=== PATIENT | female | born 1950 | race Asian ===

== ENCOUNTER 2019-01-03 13:20 | Emergency (ER) | payer BC, MEDICARE, SELFPAY ==
--- NOTE | 2019-01-03 13:30 | EDM.PDOC ---
ED HPI GENERAL MEDICAL PROBLEM - General Chief Complaint: Respiratory Problem Stated Complaint: SOB Time Seen by Provider: 01/03/19 13:29 - History of Present Illness INITIAL COMMENTS - FREE TEXT/NARRATIVE: 68-year-old female presents emergency room with shortness of breath. Patient recently moved here from [place]. She has had a history of a heart attack in the past and she was in the process of getting worked up for what sounds like reactive airway disease however, was not able to follow-up with this. She uses albuterol MDI when necessary and a nebulizer when necessary she has a Combivent inhaler that she does not use unless she absolutely necessary because of cost. The patient woke up around 7:00 this morning and was very short of breath she used her nebulizer with albuterol. This did not seem to help much. - Related Data Allergies Allergy/AdvReac Type Severity Reaction Status Date / Time No Known Allergies Allergy Verified 01/03/19 13:29 Home Meds: Home Meds Albuterol/Ipratropium [DuoNeb 3.0-0.5 MG/3 ML] 3 ml .XX Q6H #60 neb 01/03/19 [Rx ] Fluticasone Propionate [Flovent HFA 110 MCG] 1 puff INH BID #1 puff 01/03/19 [Rx ] predniSONE [Prednisone] 40 mg PO Q24H #10 tablet 01/03/19 [Rx] ED ROS GENERAL - Review of Systems Review Of Systems: See Below Constitutional: Reports: No Symptoms HEENT: Reports: No Symptoms Respiratory: Reports: Shortness of Breath, Wheezing. Denies: Cough, Sputum, Hemoptysis Cardiovascular: Reports: No Symptoms Endocrine: Reports: No Symptoms GI/Abdominal: Reports: No Symptoms : Reports: No Symptoms Musculoskeletal: Reports: No Symptoms Skin: Reports: No Symptoms Neurological: Reports: No Symptoms ED EXAM, GENERAL - Physical Exam Exam: See Below Exam Limited By: Language Barrier (She has a little bit of a language barrier but we are able to work past this) General Appearance: Alert, Mild Distress (Shortness of breath) Eye Exam: Bilateral Eye: Normal Inspection Ears: Normal External Exam, Normal Canal, Hearing Grossly Normal, Normal TMs Nose: Normal Inspection, Normal Mucosa, No Blood Throat/Mouth: Normal Inspection, Normal Lips, Normal Teeth, Normal Gums, Normal Oropharynx, Normal Voice, No Airway Compromise Head: Atraumatic, Normocephalic Neck: Normal Inspection, Supple, Non-Tender, Full Range of Motion. No: Lymphadenopathy (L), Lymphadenopathy (R) Respiratory/Chest: Other (Get O2 saturation however she is not moving much air she is very tight.) Cardiovascular: Regular Rate, Rhythm, No Edema, No Murmur GI/Abdominal: Normal Bowel Sounds, Soft, Non-Tender Extremities: Normal Inspection, Non-Tender, Pedal Edema (Trace edema in the lower extremities above the ankles. Patient states this is normal for her) EKG INTERPRETATION EKG Date: 01/03/19 Rhythm: Other (First-degree AV block) [place]: Normal P-Wave: Present QRS: Other (Low-voltage) ST-T: Other (Nonspecific nondiagnostic changes inferior V5 and V6) QT: Normal Comparison: NA - No Prior EKG EKG Interpretation Comments: Abnormal Course - Vital Signs Last Recorded V/S: Last Vital Signs Temp 37.1 C 01/03/19 13:25 Pulse 87 01/03/19 13:25 Resp 16 01/03/19 13:25 BP 187/107 H 01/03/19 13:25 Pulse Ox 99 01/03/19 17:43 - Orders/Labs/Meds Orders: Active Orders 24 hr Category Date Time Status EKG Documentation Completion [RC] STAT Care 01/03/19 13:46 Active RT Aerosol Therapy [RC] ASDIRECTED Care 01/03/19 13:42 Active RT Aerosol Therapy [RC] ASDIRECTED Care 01/03/19 14:28 Active RT Aerosol Therapy [RC] ASDIRECTED Care 01/03/19 17:34 Active Chest 1V Frontal [CR] Stat Exams 01/03/19 13:47 Taken Labs: Laboratory Tests 01/03/19 01/03/19 Range/Units 14:00 14:00 WBC 7.24 (3.98-10.04) K/mm3 RBC 4.36 (3.98-5.22) M/mm3 Hgb 13.5 (11.2-15.7) gm/dl Hct 39.9 (34.1-44.9) % MCV 91.5 (79.4-94.8) fl MCH 31.0 (25.6-32.2) pg MCHC 33.8 (32.2-35.5) g/dl RDW Std Deviation 41.9 (36.4-46.3) fL Plt Count 267 (182-369) K/mm3 MPV 9.9 (9.4-12.3) fl Neutrophils % (Manual) 57 (40-60) % Band Neutrophils % 0 (0-10) % Lymphocytes % (Manual) 32 (20-40) % Atypical Lymphs % 0 % Monocytes % (Manual) 3 (2-10) % Eosinophils % (Manual) 7 H (0.7-5.8) % Basophils % (Manual) 1 (0.1-1.2) Platelet Estimate Adequate RBC Morph Comment Normal Sodium 137 (136-145) mEq/L Potassium 3.5 (3.5-5.1) mEq/L Chloride 101 (98-107) mEq/L Carbon Dioxide 28 (21-32) mEq/L Anion Gap 11.5 (5-15) BUN 13 (7-18) mg/dL Creatinine 0.7 (0.55-1.02) mg/dL Est Cr Clr Drug Dosing 71.14 mL/min Estimated GFR (MDRD) > 60 (>60) mL/min BUN/Creatinine Ratio 18.6 H (14-18) Glucose 135 H (80-115) mg/dL Calcium 9.3 (8.5-10.1) mg/dL Total Bilirubin 0.7 (0.2-1.0) mg/dL AST 17 (15-37) U/L ALT 23 (14-59) U/L Alkaline Phosphatase 128 H (46-116) U/L Troponin I < 0.017 (0.00-0.056) ng/mL Total Protein 8.0 (6.4-8.2) g/dl Albumin 3.8 (3.4-5.0) g/dl Globulin 4.2 gm/dL Albumin/Globulin Ratio 0.9 L (1-2) Meds: Medications Discontinued Medications Generic Name Dose Route Start Last Admin Trade Name Freq PRN Reason Stop Dose Admin Albuterol/Ipratropium 3 ml 01/03/19 13:42 01/03/19 13:49 Duoneb 3.0-0.5 Mg/3 Ml NEB 01/03/19 13:43 3 ml ONETIME ONE Administration Albuterol/Ipratropium 3 ml 01/03/19 14:28 01/03/19 14:49 Duoneb 3.0-0.5 Mg/3 Ml NEB 01/03/19 14:29 3 ml ONETIME ONE Administration Albuterol/Ipratropium 3 ml 01/03/19 17:34 01/03/19 17:43 Duoneb 3.0-0.5 Mg/3 Ml NEB 01/03/19 17:35 3 ml ONETIME ONE Administration Methylprednisolone Sodium Succinate 125 mg 01/03/19 13:48 01/03/19 14:09 Solu-Medrol IVPUSH 01/03/19 13:49 125 mg ONETIME ONE Administration - Re-Assessments/Exams Free Text/Narrative Re-Assessment/Exam: 01/03/19 14:10 The patient's blood pressure has improved the patient had a DuoNeb treatment and is doing much better I did discuss any potential chest symptoms she's having she says she has some chest tightness with shortness of breath however that is much better at this point following the breathing treatment. Her EKG was concerning for with some borderline ST elevation in inferior leads with J- point elevation approaching 1 mm also of concern in leads II and F the R waves are as high as the T waves. She is moving air much better we'll recheck her in a short time and probably repeat a nebulizer if indicated and repeat EKG 01/03/19 15:10 Second breathing treatment really was very beneficial for the patient she's moving air much better this more restful. Did obtain a second EKG which shows some mild ST elevation in leads she is pain-free at this time and tightness free at this time she also has changes noted in the V5 and 6 with a negative troponin no chest pain she had some tightness associated with breathing difficulties this tightness is completely resolved. 01/03/19 16:04 Patient doing well at this time she is moving air very well no wheezing noted with forced expiration. 01/03/19 17:34 A she is still doing pretty good however she's a little tighter than she was last time I examined her we will give a third breathing treatment now anticipate discharge soon after this. 01/03/19 18:13 Patient is doing really good at this point we'll discharge home Departure - Departure Time of Disposition: 18:13 Disposition: Home, Self-Care 01 Clinical Impression: Reactive airway disease - Discharge Information Prescriptions: Albuterol/Ipratropium [DuoNeb 3.0-0.5 MG/3 ML] 3 ml .XX Q6H #60 neb Fluticasone Propionate [Flovent HFA 110 MCG] 1 puff INH BID #1 puff predniSONE [Prednisone] 40 mg PO Q24H #10 tablet Referrals: PCP,Unknown [Ordering Only Provider] - Paolo Nicole MD [Primary Care Provider] - Forms: ED Department Discharge Additional Instructions: Return to emergency room if any questions problems or worsening symptoms. Use the DuoNeb's 4 times daily for the next 5-6 days and then as needed. Use the Flovent 1 puff twice daily. Take the oral prednisone 2 pills every morning as directed. Follow-up with your doctor in the next couple of days. - My Orders Last 24 Hours: My Active Orders 01/03/19 13:42 RT Aerosol Therapy [RC] ASDIRECTED 01/03/19 13:46 EKG Documentation Completion [RC] STAT 01/03/19 13:47 Chest 1V Frontal [CR] Stat 01/03/19 14:28 RT Aerosol Therapy [RC] ASDIRECTED 01/03/19 17:34 RT Aerosol Therapy [RC] ASDIRECTED - Assessment/Plan Last 24 Hours: My Active Orders 01/03/19 13:42 RT Aerosol Therapy [RC] ASDIRECTED 01/03/19 13:46 EKG Documentation Completion [RC] STAT 01/03/19 13:47 Chest 1V Frontal [CR] Stat 01/03/19 14:28 RT Aerosol Therapy [RC] ASDIRECTED 01/03/19 17:34 RT Aerosol Therapy [RC] ASDIRECTED
[2019-01-03] MEDS ORDERED: Albuterol/Ipratropium 3.0-0.5 MG/3 ML Neb Soln NEB ONE ×3 (13:42→17:34)
[2019-01-03] MEDS ORDERED: methylPREDNISolone Sodium Succinate 125 MG/2 ML SDV IVPUSH ONE (13:48)
--- NOTE | 2019-01-04 07:29 | CR ---
Chest: Portable view of the chest was obtained. Comparison: No prior chest x-ray. Heart size is normal. Tortuous thoracic aorta is seen. Lungs are clear. Bony structures show scoliosis within the spine. Osteopenia is also present within the spine. Impression: 1. Nothing acute is appreciated on portable chest x-ray. Diagnostic code #2 MTDD
== END 2019-01-03 18:35 | disposition home or self-care (01) ==
LOC: JD.ED 13:20
DX: J45.909 Unspecified asthma, uncomplicated (principal); Z79.899 Other long term (current) drug therapy
CPT/HCPCS: 36415; 71045; 80053; 84484; 85007; 85027; 93005; 94640; 96374; 99285; J2930; 93010; 99283; J7620-GY

== ENCOUNTER 2019-04-18 09:43 | Emergency (ER) | payer BC, MEDICARE ==
[2019-04-18] MEDS ORDERED: Aspirin 81 MG Tab.Chew ONE (09:52)
[2019-04-18] MEDS ORDERED: Heparin Sodium 5,000 Units/ML Vial IVPUSH ONE (09:56)
[2019-04-18] MEDS ORDERED: Albuterol/Ipratropium 3.0-0.5 MG/3 ML Neb Soln NEB ONE (09:57)
[2019-04-18] MEDS ORDERED: Heparin Sodium 5,000 Units/ML Vial ONE (09:58)
[2019-04-18] MEDS ORDERED: Heparin Sodium/D5W 500 ML ONE (09:59)
[2019-04-18] MEDS ORDERED: Heparin Sodium/D5W 25,000 UNITS/500 ML BAG IV SCH (10:00)
[2019-04-18] MEDS ORDERED: Tenecteplase 50 MG Kit ONE (10:01)
--- NOTE | 2019-04-18 10:46 | EDM.PDOC ---
ED HPI GENERAL MEDICAL PROBLEM - General Chief Complaint: Cardiovascular Problem Stated Complaint: [facility] Time Seen by Provider: 04/18/19 09:43 - History of Present Illness INITIAL COMMENTS - FREE TEXT/NARRATIVE: 68-year-old female presents to the emergency room with chest pain and shortness of breath. Roughly an hour before she presented to the emergency room the patient had sudden onset chest pain pressure on the left side this pain did not seem to radiate she had significant shortness of breath not relieved by her nebulizers. Patient has a history of coronary artery disease she had a stent placed a little over a year ago in [place]. The patient has a history of hypertension and her son thinks hyperlipidemia she never was a smoker. In the recent past the patient had some chest tightness and discomfort that lasted 20 minutes or so on night. This was associated with her shortness of breath but not her usual shortness of breath. Chest Pain Score (Numeric/FACES): 7 - Related Data Allergies Allergy/AdvReac Type Severity Reaction Status Date / Time No Known Allergies Allergy Verified 04/18/19 10:12 Home Meds: Home Meds Albuterol/Ipratropium [DuoNeb 3.0-0.5 MG/3 ML] 3 ml .XX Q6H #60 neb 01/03/19 [Rx ] Aspirin 81 mg PO DAILY 04/18/19 [History] Budesonide/Formoterol Fumarate [Symbicort 160-4.5 Mcg Inhaler] 2 puff INH BID [History] Lisinopril/Hydrochlorothiazide [Lisinopril-Hctz 20-12.5 mg Tab] 1 tab PO DAILY 04/18/19 [History] Past Medical History Cardiovascular History: Reports: High Cholesterol, Hypertension, [place], Stents Other Cardiovascular History: stent in left anteior descending artery - March 2018 Respiratory History: Reports: Asthma - Past Surgical History HEENT Surgical History: Reports: Cataract Surgery, Tonsillectomy Social & Family History - Tobacco Use Smoking Status *Q: Never Smoker - Caffeine Use Caffeine Use: Reports: None - Recreational Drug Use Recreational Drug Use: No ED ROS GENERAL - Review of Systems Review Of Systems: See Below Constitutional: Reports: No Symptoms Respiratory: Reports: Shortness of Breath, Wheezing Cardiovascular: Reports: Chest Pain GI/Abdominal: Reports: No Symptoms : Reports: No Symptoms Musculoskeletal: Reports: No Symptoms Skin: Reports: No Symptoms ED EXAM, GENERAL - Physical Exam Exam: See Below Exam Limited By: Other (We could communicate fairly well with the patient for past medical history a lot of it was obtained from the patient's son.) General Appearance: Alert, No Apparent Distress Ears: Normal External Exam, Normal Canal, Hearing Grossly Normal Nose: Normal Inspection, Normal Mucosa, No Blood Head: Atraumatic, Normocephalic Neck: Normal Inspection, Supple, Non-Tender, Full Range of Motion. No: Lymphadenopathy (L), Lymphadenopathy (R) Respiratory/Chest: Decreased Breath Sounds, Wheezing Cardiovascular: Regular Rate, Rhythm, No Edema, No Murmur GI/Abdominal: Normal Bowel Sounds, Soft, Non-Tender Back Exam: Normal Inspection. No: CVA Tenderness (L), CVA Tenderness (R) Extremities: Normal Range of Motion, No Pedal Edema Neurological: Alert, Oriented, Normal Cognition Course - Vital Signs Last Recorded V/S: Last Vital Signs Temp 36.2 C 04/18/19 09:50 Pulse 102 H 04/18/19 09:50 Resp 20 04/18/19 09:50 BP 162/115 H 04/18/19 09:50 Pulse Ox 99 04/18/19 09:57 - Orders/Labs/Meds Orders: Active Orders 24 hr Category Date Time Status EKG 12 Lead [EKG Documentation Completion] [RC] STAT Care 04/18/19 09:45 Active RT Aerosol Therapy [RC] ASDIRECTED Care 04/18/19 09:57 Active Chest 1V Frontal [CR] Routine Exams 04/18/19 09:54 Taken Heparin Sodium/D5W [Heparin 25,000 Units in D5W 500 ML] Med 04/18/19 10:00 Active 25,000 units in 500 ml IV TITRATE Medication Orders Heparin Sodium/Dextrose (Heparin 25,000 Units In D5w 500 Ml) 25,000 units in 500 mls @ 13.44 mls/hr IV TITRATE [facility]; Protocol Last Admin: 04/18/19 10:04 Dose: 12 units/kg/hr, 13.44 mls/hr Labs: Laboratory Tests 04/18/19 Range/Units 09:50 APTT 25 (22-31) SECONDS Meds: Medications Generic Name Dose Route Start Last Admin Trade Name Freq PRN Reason Stop Dose Admin Heparin Sodium/Dextrose 25,000 units in 500 mls @ 13.44 mls/hr 04/18/19 10:00 04/18/19 10:04 Heparin 25,000 Units In D5w 500 Ml IV 12 units/kg/hr TITRATE LEO 13.44 mls/hr Administration Protocol 12 UNITS/KG/HR Discontinued Medications Generic Name Dose Route Start Last Admin Trade Name Vipin PRN Reason Stop Dose Admin Albuterol/Ipratropium 3 ml 04/18/19 09:57 04/18/19 09:57 Duoneb 3.0-0.5 Mg/3 Ml NEB 04/18/19 09:58 3 ml ONETIME ONE Administration Aspirin Confirm 04/18/19 09:52 04/18/19 09:53 Aspirin Administered 04/18/19 09:53 324 mg Dose Administration 324 mg .ROUTE .STK-MED ONE Heparin Sodium (Porcine) 3,400 units 04/18/19 09:56 04/18/19 10:05 Heparin Sodium IVPUSH 04/18/19 09:57 3,400 units .BOLUS ONE Administration Heparin Sodium (Porcine) Confirm 04/18/19 09:58 04/18/19 10:03 Heparin Sodium Administered 04/18/19 09:59 Not Given Dose 5,000 units .ROUTE .STK-MED ONE Heparin Sodium/Dextrose Confirm 04/18/19 09:59 04/18/19 10:08 Heparin 25,000 Units In D5w 500 Ml Administered 04/18/19 10:00 Not Given Dose 500 mls @ as directed .ROUTE .STK-MED ONE Tenecteplase Confirm 04/18/19 10:01 04/18/19 09:53 Tnkase Administered 04/18/19 10:02 50 mg Dose Administration 50 mg .ROUTE .STK-MED ONE - Re-Assessments/Exams Free Text/Narrative Re-Assessment/Exam: 04/18/19 10:50 Patient presented to the emergency room with a 1 hour history of sudden onset rest pain and breathing difficulties. Upon arrival to the emergency room an EKG was done which showed ST elevation in the lateral leads also had some ST elevation in the inferior leads to a lesser degree into a much lesser degree in the anterior leads. Old EKG from December shows ST elevation in the inferior leads much like she had today the lateral leads are new. Given her history it was decided best to give her thrombolytics we did discuss the risks and benefits this medication the patient and she agreed to receive the medication. Chest x-ray was obtained prior to giving this. At this time the patient is doing much better with minimal if any chest discomfort or pressure she is breathing much better. After the thrombolytics were obtained I discussed the situation with Dr. Cameron community assistant at [facility] in [place] who agrees that the difficult EKG however has concerns about apical infarct versus pericarditis. We decided to continue heparin in the treatment already set forward. The patient is sent to [place] in stable improved and satisfactory condition. Dr. Lacey in the emergency room is accepting physician. Departure - Departure Time of Disposition: 10:56 Disposition: DC/Tfer to Acute Hospital 02 Reason for Transfer *Q: Other Clinical Impression: Chest pain, STEMI (ST elevation myocardial infarction) Referrals: PCP,Unknown [Primary Care Provider] - Sepsis Event Note - Evaluation Sepsis Screening Result: No Definite Risk - Focused Exam Vital Signs: Vital Signs Temp Pulse Resp BP Pulse Ox Pulse Ox 04/18/19 09:57 99 04/18/19 09:50 36.2 C 102 H 20 162/115 H 4 L Date Exam was Performed: 04/18/19 Time Exam was Performed: 10:40 - My Orders Last 24 Hours: My Active Orders 04/18/19 09:45 EKG 12 Lead [EKG Documentation Completion] [RC] STAT 04/18/19 09:54 Chest 1V Frontal [CR] Routine 04/18/19 09:57 RT Aerosol Therapy [RC] ASDIRECTED 04/18/19 10:00 Heparin Sodium/D5W [Heparin 25,000 Units in D5W 500 ML] 25,000 units in 500 ml IV TITRATE - Assessment/Plan Last 24 Hours: My Active Orders 04/18/19 09:45 EKG 12 Lead [EKG Documentation Completion] [RC] STAT 04/18/19 09:54 Chest 1V Frontal [CR] Routine 04/18/19 09:57 RT Aerosol Therapy [RC] ASDIRECTED 04/18/19 10:00 Heparin Sodium/D5W [Heparin 25,000 Units in D5W 500 ML] 25,000 units in 500 ml IV TITRATE
--- NOTE | 2019-04-18 11:24 | CR ---
Chest: Portable view of the chest was obtained. Comparison: Prior chest x-ray of 01/03/19. Heart size is within normal limits for portable technique. Tortuous thoracic aorta is noted. Lungs are clear with no acute parenchymal change. Bony structures show scoliosis within the spine. Impression: 1. Findings as noted above. 2. Nothing acute is appreciated. Diagnostic code #2 This report was dictated in [place] Standard Time
== END 2019-04-18 10:48 ==
LOC: JD.ED 09:43
DX: I21.3 ST elevation (STEMI) myocardial infarction of unspecified site (principal); I25.10 Atherosclerotic heart disease of native coronary artery without angina pectoris; I10 Essential (primary) hypertension; J45.909 Unspecified asthma, uncomplicated; Z95.5 Presence of coronary angioplasty implant and graft; Z79.82 Long term (current) use of aspirin; Z79.899 Other long term (current) drug therapy; Z79.51 Long term (current) use of inhaled steroids
CPT/HCPCS: 36415; 71045; 85730; 93005; 94640; 96365; 99285; A9270; J1644; J3101; 93010; 99284; J7620-GY

== ENCOUNTER 2020-12-10 22:51 | Emergency (ER) | payer OTHER, BC, MEDICARE ==
[2020-12-10] MEDS ORDERED: Acetaminophen/HYDROcodone 325-5 MG Tab PO ONE (23:24)
[2020-12-10] MEDS ORDERED: Ondansetron 4 MG Tab.DIS PO ONE (23:24)
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
--- NOTE | 2020-12-11 07:44 | CR ---
Left wrist: 4 views of the left wrist were obtained. Comparison: No previous wrist study is available. Fracture is identified within the distal radius involving the metaphysis. There is posterior impaction causing dorsal tilt of the distal radial articular margin. Diffuse soft tissue swelling is seen. No other acute bony abnormality is appreciated. Impression: 1. Slightly impacted distal left radial fracture with soft tissue swelling. Diagnostic code #3
== END 2020-12-11 01:18 | disposition home or self-care (01) ==
LOC: JD.ED 22:51
DX: S52.502A Unspecified fracture of the lower end of left radius, initial encounter for closed fracture (principal); I25.10 Atherosclerotic heart disease of native coronary artery without angina pectoris; E78.00 Pure hypercholesterolemia, unspecified; I10 Essential (primary) hypertension; I25.2 Old myocardial infarction; M19.90 Unspecified osteoarthritis, unspecified site; Z79.82 Long term (current) use of aspirin; Z79.899 Other long term (current) drug therapy; Y04.0XXA Assault by unarmed brawl or fight, initial encounter; Y92.129 Unspecified place in nursing home as the place of occurrence of the external cause; Y99.0 Civilian activity done for income or pay
CPT/HCPCS: 29125; 73110; 99283; A9270

== ENCOUNTER 2021-02-11 09:10 | Day surgery (SDC) | payer OTHER, BC, MEDICARE ==
[~2021-02-11 09:10] MED LIST: EPINEPHrine 1 MG/ML SDV ONE; Lactated Ringers 1,000 ML IV SCH; Lidocaine 1%/Sod Bicarbonate in NS 8.4% 1 ML Syringe IDERM PRN; Ropivacaine 0.5% 5 MG/ML 30 ML SDV ONE; Sodium Chloride 0.9% 10 ML Syringe FLUSH PRN
[2021-02-11] MEDS ORDERED: Ondansetron 4 MG/2 ML SDV ONE (10:31)
[2021-02-11] MEDS ORDERED: Lactated Ringers 1,000 ML ONE (10:31)
[2021-02-11] MEDS ORDERED: ceFAZolin 1 GM Vial ONE (10:31)
[2021-02-11] MEDS ORDERED: Propofol 200 MG/20 ML SDV ONE ×3 (10:32→13:49)
[2021-02-11] MEDS ORDERED: Lidocaine 1% 4 ML ONE (10:32)
[2021-02-11] MEDS ORDERED: Midazolam 1 MG/ML 2 ML SDV ONE (10:32)
[2021-02-11] MEDS ORDERED: fentaNYL 100 MCG/2 ML SDV ONE (10:32)
--- NOTE | 2021-02-11 11:09 | PCM.PREANE ---
Preanesthetic Assessment - Procedure Proposed Procedure: left distal radius orif - Anesthesia/Transfusion/Family Hx Anesthesia History: Prior Anesthesia Without Reaction Family History of Anesthesia Reaction: No Transfusion History: No Prior Transfusion(s) - Review of Systems General: No Symptoms Pulmonary: No Symptoms Cardiovascular: Dyspnea on Exertion, Other (2018 and 2019- heart attack- stent in 2018) Gastrointestinal: No Symptoms Neurological: No Symptoms, Other Other: Reports: Diabetes (prediabetic), Neck Pain (arthritis everywhere) - Physical Assessment NPO Status Date: 02/10/21 NPO Status Time: 23:30 Vital Signs: Last Vital Signs Temp Pulse 76 02/11/21 10:08 Resp 16 02/11/21 10:08 BP 185/81 H 02/11/21 10:08 Pulse Ox 96 02/11/21 10:08 Height: 4 ft 8 in Weight: 61.689 kg ASA Class: 3 Mental Status: Alert & Oriented x3 Airway Class: Mallampati = 1 Dentition: Reports: Partial Thyro-Mental Finger Breadths: 3 Mouth Opening Finger Breadths: 3 ROM/Head Extension: Full Lungs: Clear to Auscultation, Normal Respiratory Effort Cardiovascular: Regular Rate, Regular Rhythm - Allergies Allergies/Adverse Reactions: Allergies Allergy/AdvReac Type Severity Reaction Status Date / Time No Known Allergies Allergy Verified 04/18/19 10:12 - Blood Blood Available: No - Anesthesia Plan Beta Dalia: Metoprolol Med Last Dose Date: 02/11/21 Med Last Dose Time: 08:00 - Acknowledgements Anesthesia Type Planned: General Anesthesia, Regional Block, MAC Pt an Appropriate Candidate for the Planned Anesthesia: Yes Alternatives and Risks of Anesthesia Discussed w Pt/Guardian: Yes Pt/Guardian Understands and Agrees with Anesthesia Plan: Yes PreAnesthesia Questionnaire Cardiovascular History: Reports: CAD, High Cholesterol, Hypertension, [place] (x 1) Other Cardiovascular History: stent in left anteior descending artery - March 2018 Respiratory History: Reports: Asthma (suspected, not PFT-tested) Gastrointestinal History: Reports: GERD Musculoskeletal History: Reports: Osteoarthritis Oncologic (Cancer) History: Reports: None - Infectious Disease History Infectious Disease History: Reports: None - Past Surgical History HEENT Surgical History: Reports: Cataract Surgery, Oral Surgery (dental extraction) Cardiovascular Surgical History: Reports: Coronary Artery Stent (x 1, , Mar 2018), Other (See Below) (Coronary angiogram x 1, Mar 2018) - SUBSTANCE USE Tobacco Use Status *Q: Never Tobacco User Tobacco Use Within Last Twelve Months: No Second Hand Smoke Exposure: No Days Per Week of Alcohol Use: 0 Recreational Drug Use History: No - HOME MEDS Home Medications: Home Meds Aspirin 81 mg PO DAILY 04/18/19 [History] Budesonide/Formoterol Fumarate [Symbicort 160-4.5 Mcg Inhaler] 2 puff INH BID 04/18/19 [History] Lisinopril/Hydrochlorothiazide [Lisinopril-Hctz 20-12.5 mg Tab] 1 tab PO DAILY 04/18/19 [History] Metoprolol Succinate 100 mg PO DAILY 12/10/20 [History] Rosuvastatin Calcium [Crestor] 40 mg PO DAILY 12/10/20 [History] traMADol [Ultram] 50 - 100 mg PO Q6H PRN #30 tab 02/11/21 [Rx] - CURRENT (IN HOUSE) MEDS Current Meds: Current Medications Lactated Ringer's (Ringers, Lactated) 1,000 mls @ 125 mls/hr IV ASDIRECTED LEO Stop: 02/11/21 23:00 Lidocaine/Sodium Bicarbonate (Lidocaine 1%/Sod Bicarbonate In Ns 8.4% 1 Ml Syringe) 0.25 ml IDERM ONETIME PRN PRN Reason: Prior to IV Start Stop: 02/11/21 18:00 Sodium Chloride (Sodium Chloride 0.9% 10 Ml Syringe) 10 ml FLUSH ASDIRECTED PRN PRN Reason: Keep Vein Open Stop: 02/11/21 18:00 Discontinued Medications Cefazolin Sodium (Cefazolin 1 Gm Vial) Confirm Administered Dose 2 gm .ROUTE .STK-MED ONE Stop: 02/11/21 10:32 Epinephrine HCl (Epinephrine 1 Mg/Ml Sdv) Confirm Administered Dose 1 mg .ROUTE .STK-MED ONE Stop: 02/11/21 08:17 Fentanyl (Fentanyl 100 Mcg/2 Ml Sdv) Confirm Administered Dose 100 mcg .ROUTE .STK-MED ONE Stop: 02/11/21 10:33 Lactated Ringer's (Ringers, Lactated) 1,000 mls @ 125 mls/hr IV ASDIRECTED LEO Stop: 02/04/21 23:00 Lactated Ringer's (Ringers, Lactated) Confirm Administered Dose 1,000 mls @ as directed .ROUTE .STK-MED ONE Stop: 02/11/21 10:32 Lidocaine HCl (Xylocaine-Mpf 1%) Confirm Administered Dose 4 mls @ as directed .ROUTE .STK-MED ONE Stop: 02/11/21 10:33 Lidocaine/Sodium Bicarbonate (Lidocaine 1%/Sod Bicarbonate In Ns 8.4% 1 Ml Syringe) 0.25 ml IDERM ONETIME PRN PRN Reason: Prior to IV Start Stop: 02/04/21 18:00 Midazolam HCl (Midazolam 1 Mg/Ml 2 Ml Sdv) Confirm Administered Dose 2 mg .ROUTE .STK-MED ONE Stop: 02/11/21 10:33 Ondansetron HCl (Ondansetron 4 Mg/2 Ml Sdv) Confirm Administered Dose 4 mg .ROUTE .STK-MED ONE Stop: 02/11/21 10:32 Propofol (Propofol 200 Mg/20 Ml Sdv) Confirm Administered Dose 200 mg .ROUTE .STK-MED ONE Stop: 02/11/21 10:33 Ropivacaine (Ropivacaine 0.5% 5 Mg/Ml 30 Ml Sdv) Confirm Administered Dose 30 ml .ROUTE .STK-MED ONE Stop: 02/11/21 08:17 Sodium Chloride (Sodium Chloride 0.9% 10 Ml Syringe) 10 ml FLUSH ASDIRECTED PRN PRN Reason: Keep Vein Open Stop: 02/04/21 18:00
[2021-02-11] MEDS ORDERED: Bupivacaine 0.25% 10 ML SDV ONE (12:00)
--- NOTE | 2021-02-11 13:53 | PCM.SN.2 ---
- Free Text/Narrative Note: Date: 02/11/21 Time out: 1200 Start time:1200 End time: [address] left interscalene block with ultrasound guidance and nerve stimulator for post op pain control per Dr. Arambula and patient. Procedure ORIF forearm fracture. Informed consent obtained. Monitors and O2 placed at 2 l per n/c. Versed 2 mg and Fentanyl 50 mcg given IV total. Patient awake and talking during procedure. Left neck and clavicle area prepped with chlorprep. Sterile gloves, hat and mask worn. US probe with sterile sleeve placed midclavicular with ID of brachial plexus and subclavian artery. Brachial plexus followed cephalad to level of cricoid. 22 g 2 inch stimplex needle advanced with US guidance to brachial plexus. Block attempted per Yahaira Garza CRNA first with Orin Domingo then I proceeded to block patient. Positive forearm response at .4mA with nerve stimulator. Ceased with saline injection. Ropivacaine 0.5% with epi 1:200,000 injected in increments of 5 ml with negative aspiration before each injection to a total of 20 ml. Good spread of local anesthetic seen on US. Patient tolerated procedure well. Vitals stable with no complaints.
--- NOTE | 2021-02-11 14:18 | PCM48HPAN ---
Post Anesthesia Note - EVALUATION WITHIN 48HRS OF ANESTHETIC Vital Signs in Normal Range: Yes Patient Participated in Evaluation: Yes Respiratory Function Stable: Yes Airway Patent: Yes Cardiovascular Function Stable: Yes Hydration Status Stable: Yes Pain Control Satisfactory: Yes Nausea and Vomiting Control Satisfactory: Yes Mental Status Recovered: Yes Vital Signs: Last Vital Signs Temp Pulse 76 02/11/21 10:08 Resp 16 02/11/21 10:08 BP 185/81 H 02/11/21 10:08 Pulse Ox 96 02/11/21 10:08
--- NOTE | 2021-02-11 14:53 | CR ---
Left wrist: 9 fluoroscopic spot views were obtained of the left wrist. Study obtained utilizing C-arm device in the operating room. Comparison: Prior left wrist study of 12/10/20. Study shows reduction and fixation with plate and screws. Fluoroscopy time is given as 57.9 seconds. Impression: 1. Procedural study as noted above. Diagnostic code #2
--- NOTE | 2021-02-24 16:23 | PCM.OPNOTE ---
- General Post-Op/Procedure Note Date of Surgery/Procedure: 02/11/21 Operative Procedure(s): open reduction internal fixation left distal radius with left distal radial osteomy Pre Op Diagnosis: left distal radius fracture malunion Post-Op Diagnosis: Same Anesthesia Technique: General LMA, Regional Block Primary Surgeon: Oswaldo Arambula Anesthesia Provider: Yahaira Brooks Professional Bass Fisher: Shital Queen EBL in mLs: 5 Complications: None Condition: Good
--- NOTE | 2021-02-25 08:40 | OR ---
DATE OF OPERATION: 02/11/2021 SURGEON: Oswaldo Arambula MD OPERATION PERFORMED: Open reduction and internal fixation of left distal radius fracture with left distal radial osteotomy. PREOPERATIVE DIAGNOSIS: Left distal radius fracture, malunion. POSTOPERATIVE DIAGNOSIS: Left distal radius fracture, malunion.. ANESTHESIA: General LMA with regional block. ANESTHESIA PROVIDER: Yahaira Brooks. SWING DRIVER: Shital Qeuen PA-C ESTIMATED BLOOD LOSS: Less than 5 mL. COMPLICATIONS: None. CONDITION: Stable. DESCRIPTION OF PROCEDURE: The patient was identified in the preoperative holding area. Proper site was marked and identified by the surgeon. The patient was taken back to the operating theater where after adequate anesthesia, the patient's left upper extremity had a nonsterile tourniquet applied and then sterilely prepped and draped in the usual sterile fashion. OR time-out was performed. The patient received 2 g IV Ancef. Left upper extremity was exsanguinated. Tourniquet was insufflated to 200 mmHg. Standard volar approach of Donny was used to take down the FCR tendon sheath. FCR tendon was then retracted ulnarly to protect the median nerve. Base of the tendon sheath was opened. The pronator quadratus was then from the distal radius. The fracture malunion site was noted. At this time, it was noted to be significantly healed. I was able to free up the radial styloid fragment but then had to do a distal radial osteotomy with the osteotome and drill bit. Once this was completed, I did a reduction. It had roughly neutral tilt, and I was able to get it back out to length and inclination anatomic. At this time, K-wires were used to hold it in place. A [place] volar locking plate was then placed. This was then fixed with both locking and nonlocking screws proximally and distally. Again, on AP, lateral, and 23-degree lateral views, there showed to be reduction of the radial height as well as inclination and neutral tilt. At this time, adequate saline was irrigated through the wound. 3-0 Vicryl was used subcutaneously and Monocryl was used for closure of the skin. The patient had a sterile soft dressing applied and a volar slab splint and was sent to the PACU in stable condition. MMODAL /[id number]
== END 2021-02-11 16:08 | disposition home or self-care (01) ==
LOC: JD.SDS 09:10
PROVIDERS: ATTEND Orthopaedic Surgery
DX: S52.502P Unspecified fracture of the lower end of left radius, subsequent encounter for closed fracture with malunion (principal); I25.10 Atherosclerotic heart disease of native coronary artery without angina pectoris; I10 Essential (primary) hypertension; E78.2 Mixed hyperlipidemia; I25.2 Old myocardial infarction; I42.0 Dilated cardiomyopathy; I25.5 Ischemic cardiomyopathy; J45.909 Unspecified asthma, uncomplicated; Z98.890 Other specified postprocedural states; Z79.899 Other long term (current) drug therapy; Z79.82 Long term (current) use of aspirin
CPT/HCPCS: 25400; 76000; C1713; C1776; J0171; J0690; J2250; J2405; J2704; J2795; J3010; J7120; 01830; 64415; 76942; J3490